=== PATIENT | male | born 1955 | race African-American/Black ===

== ENCOUNTER → 2017-07-26 | Outpatient (CLI) | payer OTHER ==
--- NOTE | 2017-07-26 07:49 | US ---
EXAMINATION TYPE: US scrotum with doppler. Grayscale and color Doppler Duplex imaging performed of faith gutierrez scrotum. DATE OF EXAM: 07/26/2017 COMPARISON: NONE CLINICAL HISTORY: Lump in testicle N50.9. Patient noted palpable x 6 months. EXAM MEASUREMENTS: TESTICLES: Right Testicle: 2.9 x 2.8 x 1.7 cm Left Testicle: 3.7 x 2.8 x 2.3 cm EPIDIDYMIS HEAD: Right Epididymis: 3.5 x 2.3 x 1.2 cm Left Epididymis: 3.2 x 4.8 x 2.7 cm Doppler performed to assess for testicular vascularity; good bilateral color flow and waveforms are s een. There is no evidence of testicular torsion. Right Epididymis: couple of cysts are noted in head with larger cyst = 0.6 x 0.8 x 0.6cm. Right testi kiesha is homogeneous Left Epididymis: Multiple large cysts are noted in head with largest cyst = 3.6 x .5 x 2.2cm. Left te sticle is homogeneous. Presence of hydroceles: primarily noted in left scrotal sac with mobile low level internal echoes marcus ged and size = 2.3 x 3.2 x 0.9cm. Presence of varicoceles: no IMPRESSION: 1. Bilateral epididymal head cysts. A large cyst is noted on the left measuring 3.6 cm. 2. Left-sided hydrocele.
== END | disposition home or self-care (01) ==
LOC: RADUSWWP 06:55
PROVIDERS: ATTEND Family Medicine
DX: N50.3 Cyst of epididymis (principal); N43.3 Hydrocele, unspecified
CPT/HCPCS: 76870; 93975

== ENCOUNTER → 2017-11-22 | Outpatient (CLI) | payer OTHER ==
--- NOTE | 2017-11-22 18:11 | US ---
EXAMINATION TYPE: US abdomen complete DATE OF EXAM: 11/22/2017 COMPARISON: 10/28/2014 CLINICAL HISTORY: R74.8 Abn levels serum enzymes Chronic Hepatitis C EXAM MEASUREMENTS: Liver Length: 13.4 cm Gallbladder Wall: 0.2 cm CBD: 0.3 cm Spleen: 8.4 cm Right Kidney: 10.3 x 5.9 x 5.4 cm Left Kidney: 10.9 x 5.5 x 5.4 cm Pancreas: Obscured by bowel gas Liver: mildly attenuated posteriorly Gallbladder: wnl Evidence for sonographic Conway's sign: No CBD: wnl Spleen: wnl Right Kidney: wnl Left Kidney: wnl Upper IVC: wnl Abd Aorta: size is wnl, mild intimal thickening is noted distally; prominent THOMAS in TR view IMPRESSION: 1. Very mild heterogeneity to the liver posteriorly. This is a nonspecific finding could be related t o area of fatty infiltration. Correlate with liver function studies to exclude hepatocellular disease . No evidence of mass.
== END | disposition home or self-care (01) ==
LOC: RADUSWWP 15:53
PROVIDERS: ATTEND Family Medicine
DX: R74.8 Abnormal levels of other serum enzymes (principal); B18.2 Chronic viral hepatitis C
CPT/HCPCS: 76700

== ENCOUNTER → 2018-01-03 | Outpatient (CLI) | payer BC, OTHER ==
--- NOTE | 2018-01-04 19:44 | CT ---
EXAMINATION TYPE: CT angio abdomen DATE OF EXAM: 01/03/2018 COMPARISON: Correlation ultrasound 11/22/2017 HISTORY: 62-year-old male with chronic viral hep C CT DLP: 463.1 mGycm, Automated Exposure Control for Dose Reduction was Utilized. Technique: CT scan of the abdomen is performed with with IV Contrast, patient injected with 100 mL of Isovue 370. Coronal and sagittal MIP reconstructions performed. 3-D reconstructions generated on a d edicated independent workstation. FINDINGS: Heart is normal size without pericardial effusion. Calcified granuloma anterior right midlung incidentally noted. Lung bases are otherwise clear without pleural effusion. Liver measures mildly enlarged 18.5 cm craniocaudal. By early arterial phase imaging, no focal lesion is seen. This phase of imaging is limited for assessment of hepatoma. No biliary ductal dilatation. Imaging is too soon for assessment of the portal venous system. Gallbladder, adrenal glands, kidneys, spleen, pancreas show no gross abnormality by early arterial ph ase imaging. There is no evidence for AAA. There is retroaortic left renal vein which joins the lower IVC. There i s conventional hepatic arterial anatomy. Accessory left renal artery which has a takeoff from the dis butch abdominal aorta. RYAN is patent. Normal appendix. Scattered moderate stool burden. No dilated small bowel, free fluid, or free air. No mesenteric or retroperitoneal lymphadenopathy identified. Bones: Hypertrophic facet arthropathy mid to lower lumbar spine with degenerative grade 1 anterolisth esis L5-S1 and grade 1 retrolisthesis at L3-L4. Bilateral foraminal narrowing at L5-S1. No osseous de structive process. IMPRESSION: 1. Early arterial phase imaging shows conventional hepatic artery anatomy. The phase of imaging is to o early for optimal assessment of hepatoma or assessment of the portal venous system. 2. Retroaortic left renal vein which joins the lower IVC and also an accessory left hepatic artery wh ich has its takeoff from the distal abdominal aorta. 3. Hepatomegaly (18.5 cm). 4. Hypertrophic facet arthropathy mid to lower lumbar spine with a grade 1 spondylolistheses at L3-L4 and L5-S1.
== END | disposition home or self-care (01) ==
LOC: RADCTMAIN 16:44
PROVIDERS: ATTEND Family Medicine
DX: R16.0 Hepatomegaly, not elsewhere classified (principal); B18.2 Chronic viral hepatitis C
CPT/HCPCS: 74175; Q9967

== ENCOUNTER → 2018-01-07 | Outpatient (CLI) | payer BC ==
[2018-01-07 14:38] LABS: HCT 43.9 % (39.0-53.0); HGB 14.8 gm/dL (13.0-17.5); MCH 27.8 pg (25.0-35.0); MCHC 33.7 g/dL (31.0-37.0); MCV 82.4 fL (80.0-100.0); Platelet Count 260 k/uL (150-450); RBC 5.32 m/uL (4.30-5.90); RDW 12.5 % (11.5-15.5); WBC 4.5 k/uL (3.8-10.6)
[2018-01-07 14:44] LABS: INR 1.2 (<1.2); Prothrombin Time 11.5 sec (9.0-12.0)
[2018-01-07 15:01] LABS: Albumin 4.4 g/dL (3.5-5.0); Bilirubin, Delta 0.2 mg/dL (0.0-0.2); Bilirubin,Unconjugated 0.6 mg/dL (0.0-1.1); Total Bilirubin 0.8 mg/dL (0.2-1.3); Total Protein 7.8 g/dL (6.3-8.2)
[2018-01-07 19:44] LABS: Alpha Fetoprotein, Tumor Mkr 5.7 ng/mL (0.0-7.9)
[2018-01-07 20:21] LABS: Hepatitis A Antibody IgM Non-Reactive (Non-Reactive); Hepatitis B Core IgM Non-Reactive (Non-Reactive)
[2018-01-10 14:33] LABS: HCV Quant Log 6.03 (<1.08)
== END ==
LOC: LABWHC1 14:15
PROVIDERS: ATTEND Physician Assistant
DX: B18.2 Chronic viral hepatitis C (principal)
CPT/HCPCS: 36415; 80074; 80076; 82105; 85027; 85610; 87522

== ENCOUNTER → 2018-02-22 | Outpatient (CLI) | payer BC, OTHER ==
--- NOTE | 2018-02-22 13:52 | XR ---
EXAMINATION: XR chest 2V DATE AND TIME: 02/22/2018 11:13 AM ORDERING PROVIDER: Juan M Means DO CLINICAL INDICATION: H44.13,H20.02 TECHNIQUE: PA and lateral COMPARISON: 10/31/2018 DESCRIPTION: The lungs are clear. The pleural spaces are negative. The cardiac silhouette is not enlarged. The ascending aorta appears enlarged in its caliber radiographically. This can be a false positive. F urther characterization with chest CT with contrast is requested. The skeletal structures are intact without focal findings. The soft tissues are unremarkable. IMPRESSION: 1. NO ACUTE PROCESS. 2. ASCENDING AORTIC FINDING DISCUSSED.
--- NOTE | 2018-02-22 13:59 | XR ---
PROCEDURE: XR sacroiliac joint comp BILAT 3 views DATE AND TIME: 02/22/2018 11:16 AM REFERRING PHYSICIAN: Juan M Means DO CLINICAL INDICATION: PHH, H44.13,H20.02. Pain. TECHNIQUE: Department protocol. COMPARISON: None FINDINGS: There is no fracture or malalignment. Advanced lower lung bar spondylosis changes are noted. Mild/moderate osteoarthritis changes are seen involving the bilateral sacroiliac joints. No focal skeletal findings. The soft tissues are unremarkable. IMPRESSION: NO ACUTE PROCESS.
[2018-02-22 16:57] LABS: Rheumatoid Factor 6 IU/mL (0-15)
[2018-02-24 05:53] LABS: Angiotensin-1 Converting Enz. 47 U/L (8-52)
[2018-02-25 09:35] LABS: Lyme IgG/IgM 0.1 Index
[2018-02-25 12:53] LABS: HLA B27 NEGATIVE
== END | disposition home or self-care (01) ==
LOC: LABWHC1 10:30
PROVIDERS: ATTEND Ophthalmology
DX: H44.133 Sympathetic uveitis, bilateral (principal); H20.023 Recurrent acute iridocyclitis, bilateral
CPT/HCPCS: 36415; 71046; 72202; 82164; 86038; 86431; 86618; 86780; 86812

== ENCOUNTER → 2021-09-27 | Outpatient (CLI) | payer BC, OTHER ==
--- NOTE | 2021-09-27 14:07 | P.CON ---
Consult Note - . Consult date: 09/27/21 Assessment/Plan:: HISTORY OF PRESENT ILLNESS: 66 yr old male as a referral from Dr Velez, with a history of neck and R shoulder pain due to cervical spinal stenosis, spondylosis, neuroforaminal stenoses and facet arthropathy presents today for pain. States his neck pain is 9 /10 dull & achy in character but radiates with the same intensity in a sharp shooting character towards his R shoulder. States his neck has difficulty with forward flexion and can not elevate his right upper extremity past his shoulder. States he is currently in physical therapy (for the past 3 months) which has improved his range of motion and strength, but still has inconsiderable pain that keeps from falling asleep at night. It is provoked with sitting upright and keeping his head in the same position. It is palliated with medications, topicals, rest, physical therapy, massage intergrated in PT, ice, heat, walking, rest and stretching PMH: HTN, Hyperlipidemia PSH: L RCT Repair SH: No tobacco use. Denies ETOH use since 2013. and lives with spouse at home FH: HTN All: NKDA Meds: Tramadol from Dr Velez REVIEW OF ORGAN SYSTEMS: CONSTITUTIONAL: No fevers or chills. No recent weight loss. HEENT: No visual acuity loss, eye pain, difficulties with hearing. No nosebleeds. No difficulty swallowing. RESPIRATORY: Denies any troubles with breathing or dyspnea on exertion. CARDIOVASCULAR: Denies any chest pain, palpitations, or recent heart attacks. GASTROINTESTINAL: Denies fatty food intolerance. Has change in bowel habits and gas bloat. GENITOURINARY: Denies any blood in urine. Has increased urinary frequency. NEUROLOGICAL: + numbness and tingling along the distal extremities. No seizure disorders or headaches. MUSCULOSKELETAL: + back pain SKIN: No skin cancer. No rash. PSYCHIATRIC: Denies current depression or suicidal tho ughts. ENDOCRINE: Denies current thyroid disorders. Denies any blood sugar glucose intolerance. HEME/LYMPHATIC: Denies any lumps and bumps around the neck. History of deep venous thrombosis. ALLERGY/IMMUNOLOGY: No immunoglobulin therapy. No immune deficiencies. BREAST: Denies current breast lumps, pain or nipple discharge. Physical Examinations : Constitutional : Cooperative , not in acute distress . HEENT: Neck supple. No Lymphadenopathy. Normal thyroid size . Eyes no ptosis , no icterus, no photophobia . Hearing intact. Normal oropharynx. No Thrush. Respiratory : Chest clear to auscultations bilaterally. No wheezing. No rhonchi. Cardiovascular : Regular rate and rhythm , S1 / S2. No S3 . No S4. Gastrointestinal : Abdomen soft. No tenderness. Bowel sounds x 4. No organomegaly . Genitourinary : Deferred. Neurologic : Cranial nerve II to XII intact. No focal neurological deficits. Psychiatric : alert & oriented x 3. Matching mood & appropriate affect. Judgment & insight intact. Lymphatic No Lymphadenopathy. Musculoskeletal : Cervical Spine Motor strength in the deltoid and biceps: 4 /5 right side. Normal Left side Motor strength biceps and the wrist extensors: Normal right side . Normal left side Motor strength in the triceps muscle: 4 /5 right side. Normal left side \ RUE abduction <90 degrees, limited internal/ external rotation due to pain & weakness Deep tendon reflexes: Normal at the biceps. Normal at Brachioradialis. Normal at triceps Vertebral body tenderness to palpation over C4 & C5 Cervical facet loading test: positive bilaterally at C4 - C7 Spurling test: positive bilaterally Neck distraction test: positive bilaterally Ad sign: positive bilaterally Lumbar spine Motor strength lower extremities ,thigh and legs 5/5 Right side , 5/5 Left side Deep tendon reflexes : Normal Knee Jerk. Normal Ankle Jerk Lumbar facet Loading Test: positive Right / positive Left Range of motion of the lumbar spine Flexion 30 degrees, extension 10 degrees Straight Leg Raise test: Left/ Right positive at degree Candelario test: positive right / positive left. Severe tenderness over the Sacroiliac joint on the Right / Left sides Gaenslen test: positive bilaterally Seated flexion test: positive bilaterally. IMAGING MRI Cervical Spine 09/16/2021 : Straightening of the normal cervical lordosis, C3- C4 central protrusion with moderate spinal canal stenosis, bilateral neuroforaminal stenosis, facet arthropathy, C4-C5 minimal spinal canal stenosis, bilateral neuroforaminal stenosis and facet arthropathy, C5-C6 moderate spinal canal stenosis, moderate bilateral neuroforaminal stenoses and facet arthropathy, C6-C7 bilateral neuroforaminal stenosis, mild spinal stenosis and facet arthropathy, C7-T1 central disc protrusion MRI R Shoulder 09/16/2021 : Mild infraspinatus rotator cuff atrophy, full thickness tear & retraction of the rotator cuff and some curvature of hte anterior acromion consistent with impingement. subdeltoid/ subacromial bursa. 1 - 1.5cm elevation of the humeral head. Rotator cuff tear with retraction to the level of the glenoid medial to the AC joint. Partial subscapularis tear also. Assessment/ Plan : Recommendation of a C4 - C5 KAMI and R shoulder intraarticular injection Discussed that a series of 3 may be necessary for adequate pain relief Discussed risks/ benefits of procedures and pt verbalized understanding Stop use of aspirin 5 days prior to procedure May continue all other medications as directed I have spent greater than 50 minutes on patient care today. Dr Reese was available by phone for the evaluation of this patient. The time was used to review the medical records including relevant urine studies and Prescription history (MAPs), review of the available imaging, evaluation and examination of the patient, coordination of care with the medical staff and if applicable referring physicians, as well as creation of the medical record PQRS Measure Charge Sheet PQRS Narrative: Smoking Status Never smoker Scale Used Numeric (1 - 10) Hx Alcohol Use (MH) No Home Medications: Ambulatory Orders Ergocalciferol [Vitamin D2 (1250 Mcg = 37338 Iu)] 1,250 mcg PO WEEKLY 09/25/21 Losartan Potassium 50 mg PO DAILY 09/25/21 Mirtazapine [Remeron] 15 mg PO HS 09/25/21
[2021-09-27 15:14] VITALS: BP 145/94; PULSE 92; RESP 18; TEMP 97.7
== END ==
LOC: PNWHC3 12:34
PROVIDERS: ATTEND Physician Assistant Medical
DX: M50.10 Cervical disc disorder with radiculopathy, unspecified cervical region (principal); I10 Essential (primary) hypertension; E78.5 Hyperlipidemia, unspecified; Z79.899 Other long term (current) drug therapy
CPT/HCPCS: 99211

== ENCOUNTER 2021-10-26 12:41 | Day surgery (SDC) | payer BC, OTHER ==
[2021-10-26 13:02] VITALS: RESP 16; TEMP 98
[2021-10-26] MEDS ORDERED: LACTATED RINGERS 1,000 ML IV ONE (13:03)
[2021-10-26] MEDS ORDERED: LIDOCAINE 1% (10MG/ML) FOR IV START INTRADERMA ONE (13:04)
[2021-10-26] MEDS ORDERED: fentaNYL (PF) 50 MCG/ML 2 ML AMP ONE (13:10)
[2021-10-26] MEDS ORDERED: ROPIVACAINE 5MG/ML 20ML VIAL ONE (13:10)
[2021-10-26] MEDS ORDERED: DEXAMETHASONE SOD PHOSPHATE 10 MG/ML 1 ML VIAL ONE (13:10)
[2021-10-26] MEDS ORDERED: MIDAZOLAM 2 MG/2 ML VIAL ONE (13:10)
[2021-10-26] MEDS ORDERED: IOPAMIDOL M200 10 ML VIAL ONE (13:10)
--- NOTE | 2021-10-26 13:35 | P.PCN ---
Date of Procedure: 10/26/21 Procedure(s) Performed: . PROCEDURE 1. Cervical epidural steroid injection under fluoroscopic guidance, C4-5 (fluoroscopy images available in the radiology department ) 2. Cervical epidurogram. 3-right shoulder steroid injection under fluoroscopy guidance PREOPERATIVE DIAGNOSIS: 1- Cervical Degenerative Disc Diseases 2- Cervical foraminal stenosis 3-cervical spondylosis with cervical Facet arthropathy without myelopathy 4-right shoulder arthralgia POSTOPERATIVE DIAGNOSIS: : same as pre-op diagnoses ANESTHESIA: Local anesthesia with lidocaine 1 % , and moderate sedation, with Versed 2 mg and Fentanyl 100 mcg. EBL 0 PROCEDURE INDICATION: The patient with neck pain and radiculitis unresponsive to conservative treatment consents for procedure. PROCEDURE DESCRIPTION / TECHNIQUE: The patient was seen and identified in the preoperative area. Risks, benefits, complications, including but not limited to infections ,bleeding , allergic reactions to the medications ,and not complete pain releife, and alternatives were discussed with the patient, the patient agreed to proceed with the procedure and signed the consent. Patient was taken to the OR and time out was completed. The patient was placed in the prone position on the procedure table. A pillow was placed under the patients chest to increase the cervical interlaminar space. The cervical area was prepped and draped in the usual sterile fashion. Vital signs were closely monitored during the procedure. Conscious sedation was used during the procedure to decrease patients anxiety. Using anterior-posterior fluoroscopy, the C4-5 interlaminar space was identified and the skin over this site was marked and then infiltrated with 1% lidocaine subcutaneously. Subsequently, a 20-gauge 3-1/2-inch Tuohy epidural needle was inserted and advanced toward the epidural space by means of the ``hanging-drop technique and guided by AP and lateral fluoroscopy. The correct needle position in the epidural space was verified with the injection of 2 mL of the water soluble contrast dye Isovue-200 and observing an excellent epidurogram with the epidural spread of the dye, after negative aspiration for blood and CSF and in the absence of paresthesias. then, mixture containing 15 mg Dexamethasone and 2 ml of preservative-free normal saline injected and a washout of epidurogram was seen. Needle was withdrawn intact. After that the right shoulder area prepped with Betadine 3, under sterile technique 25-gauge needle advanced slowly under fluoroscopy and placed in the right shoulder joint , after needle placement confirmed, and after negative aspiration Ropivacaine 0.5% 5 ml mixed with 5 mg of dexamethasone injected in the right shoulder joint after negative aspiration patient tolerated the procedure well without any complications Complications= none. Disposition= patient was placed in supine position and transferred to the recovery room area in stable condition and there was no evidence of upper or lower extremity motor or sensory deficit after the procedure patient was discharged from recovery room after discharge criteria met and home discharge instructions was given by the staff and patient will follow with the pain clinic in 2-4 weeks
[2021-10-26] MEDS ORDERED: IV FLUID CONTINUATION 1,000 ML IV ONE (13:36)
[2021-10-26 13:53] VITALS: BP 123/84; PULSE 91
--- NOTE | 2021-10-26 14:27 | FL ---
EXAMINATION TYPE: FL guided pain mgmt statistic DATE OF EXAM: 10/26/2021 FLUOROSCOPY Fluoroscopy time of 2 seconds was used during cervical epidural injection. 2 image/s document/s the procedure.
== END 2021-10-26 14:03 | disposition home or self-care (01) ==
LOC: ORPAIN 12:41
PROVIDERS: ATTEND Specialist
DX: M50.10 Cervical disc disorder with radiculopathy, unspecified cervical region (principal); M48.02 Spinal stenosis, cervical region; M47.22 Other spondylosis with radiculopathy, cervical region; M25.511 Pain in right shoulder
CPT/HCPCS: 20610; 62321; J2250; J1100; J3010; Q9966; J2795; 99152